=== PATIENT | male | born 1985 | race African-American/Black ===

== ENCOUNTER 2017-03-04 09:43 | Emergency (ER) | payer OTHER ==
[~2017-03-04] VITALS: Ht 180.3 cm; Wt 77.0 kg
[2017-03-04] MEDS ORDERED: IBUPROFEN 800 MG TABLET PO ONE (12:00)
[2017-03-04 13:05] VITALS: BP 139/77
== END 2017-03-04 13:11 | disposition home or self-care (01) ==
LOC: EMS 09:44
DX: S62.307A Unspecified fracture of fifth metacarpal bone, left hand, initial encounter for closed fracture (principal); R03.0 Elevated blood-pressure reading, without diagnosis of hypertension; F12.90 Cannabis use, unspecified, uncomplicated; F17.210 Nicotine dependence, cigarettes, uncomplicated; W23.0XXA Caught, crushed, jammed, or pinched between moving objects, initial encounter; Y93.89 Activity, other specified; Y92.89 Other specified places as the place of occurrence of the external cause; Y99.8 Other external cause status
CPT/HCPCS: 99284

== ENCOUNTER 2018-03-04 02:23 | Emergency (ER) | payer OTHER ==
[~2018-03-04] VITALS: Ht 180.3 cm; Wt 79.5 kg
[2018-03-04] MEDS ORDERED: IBUPROFEN 600 MG TABLET PO ONE (06:30)
[2018-03-04 07:24] VITALS: BP 135/73
== END 2018-03-04 07:26 | disposition left against medical advice (07) ==
LOC: EMS 02:24
DX: S80.02XA Contusion of left knee, initial encounter (principal); S80.01XA Contusion of right knee, initial encounter; S70.211A Abrasion, right hip, initial encounter; H57.11 Ocular pain, right eye; F12.90 Cannabis use, unspecified, uncomplicated; F17.210 Nicotine dependence, cigarettes, uncomplicated; Y08.89XA Assault by other specified means, initial encounter; Y93.89 Activity, other specified; Y92.89 Other specified places as the place of occurrence of the external cause; Y99.8 Other external cause status
CPT/HCPCS: 70450; 70486; 73502; 99284

== ENCOUNTER 2018-11-23 09:37 | Emergency (ER) | payer OTHER ==
[~2018-11-23] VITALS: Ht 180.3 cm; Wt 77.3 kg
[2018-11-23] MEDS ORDERED: POVIDONE-IODINE 10% 15 ML SOLUTION UD TP ONE (10:30)
[2018-11-23] MEDS ORDERED: AMOX TR/POT CLAV 875 MG/125 MG TABLET PO ONE (10:30)
[2018-11-23] MEDS ORDERED: IBUPROFEN 800 MG TABLET PO ONE (10:30)
[2018-11-23] MEDS ORDERED: BACITRACIN 0.9 GM PACKET OINTMENT TP ONE (10:30)
[2018-11-23 10:42] VITALS: BP 115/65
== END 2018-11-23 11:03 | disposition home or self-care (01) ==
LOC: EMS 09:39
DX: S51.832A Puncture wound without foreign body of left forearm, initial encounter (principal); F17.210 Nicotine dependence, cigarettes, uncomplicated; W54.0XXA Bitten by dog, initial encounter; Y93.89 Activity, other specified; Y92.89 Other specified places as the place of occurrence of the external cause; Y99.8 Other external cause status
CPT/HCPCS: 99406

== ENCOUNTER 2019-02-14 13:52 | Emergency (ER) | payer OTHER ==
[~2019-02-14] VITALS: Ht 180.3 cm; Wt 79.5 kg
[2019-02-14 13:57] VITALS: BP 132/84
[2019-02-14] MEDS ORDERED: AMOX TR/POT CLAV 875 MG/125 MG TABLET PO ONE (14:45)
== END 2019-02-14 15:20 | disposition home or self-care (01) ==
LOC: EMS 13:53
DX: J32.9 Chronic sinusitis, unspecified (principal); F12.90 Cannabis use, unspecified, uncomplicated; F17.210 Nicotine dependence, cigarettes, uncomplicated